=== PATIENT | female | born 1985 ===

== ENCOUNTER → 2020-12-22 10:15 | Outpatient (CLI) | payer OTHER, SELFPAY ==
[2020-12-22 11:14] LABS: COVID19 -Nasal RAPID Negative (Negative)
== END ==
PROVIDERS: PCP Internal Medicine; Visit Provider Physician Assistant
DX: Z01.812 Encounter for preprocedural laboratory examination (principal); Z20.822 Contact with and (suspected) exposure to COVID-19
CPT/HCPCS: 87635

== ENCOUNTER 2020-12-24 08:39 | Day surgery (SDC) | payer OTHER, SELFPAY ==
[2020-12-24] VITALS (8 sets, daily range): BP systolic 103–122; BP diastolic 65–95; PULSE 60–80; RESP 13–18; TEMP 36.6–36.8; O2SAT 96–100; BMI 35.5
--- NOTE | 2020-12-24 | PATH_ITS ---
[facility] Accession Number: [id number] . 01 Material submitted: . duodenum - DUODENUM . 01 Clinical history: . A: R/O CELIAC . 02 Diagnosis: Duodenum, Biopsy: Duodenal mucosa with minimal active inflammation, non-specific. Negative for granulomas, features of sprue, dysplasia, or malignancy. MRV 12/26/2020 1029 Local . 02 Electronically signed: . Kylee Hicks MD, Pathologist NPI- [id number] . 01 Gross description: . DUODENUM: Received in formalin are 2 fragment(s) of mae, soft tissue measuring 0.1 x 0.1 x 0.1 cm to 0.3 x 0.3 x 0.2 cm submitted entirely in 1 cassette(s) /RAMÍREZ 12/25/2020 1934 Local . 02 Pathologist provided ICD-10: D50.9, K21.9, R10.32 . 02 CPT . 331014 Performed at: 01 [facility] [address], [place], [place] [id number] MD Bo Patterson MD Phone: [phone] Performed at: 02 [facility] [address] [place], [place] [id number] MD Maria Elena Ge MD Phone: [phone]
--- NOTE | 2020-12-24 09:07 | PM.HP.1 ---
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 Family & Social History Tobacco & Substance use: Smoking Status Former smoker Meds Home Medications and Allergies Home Medications Medication Instructions Recorded Confirmed Type ascorbate calcium (vitamin C) 500 500 mg PO DAILY 08/22/19 12/24/20 History mg tablet metformin 500 mg tablet 500 mg PO DAILY 08/22/19 12/24/20 History omeprazole 20 mg capsule,delayed 20 mg PO DAILY 08/22/19 12/24/20 History release cholecalciferol (vitamin D3) 25 mcg PO DAILY 12/03/20 12/24/20 History [Vitamin D3] Allergies Allergy/AdvReac Type Severity Reaction Status Date / Time ciprofloxacin [From Cipro] Allergy Severe temporary Verified 12/24/20 08:58 paralysis fluoxetine [From Prozac] Allergy Intermediate major Verified 12/24/20 08:58 swelling hydroxyzine Allergy Intermediate major Verified 12/24/20 08:58 swelling loratadine AdvReac Rash Verified 12/24/20 09:00 Exam Narrative Exam Narrative: Oropharynx free of lesions Chest clear to auscultation percussion Cardiac exam reveals no S3 or murmur Assessment & Plan Assessment & Plan narrative: Iron deficiency anemia. Need for both upper endoscopy and colonoscopy to rule out possible lesions causing blood loss. Risks, benefits, alternatives have been explained.
--- NOTE | 2020-12-24 09:09 | PM.OP.ENDO ---
Operative Date/Time/Diagnoses Date of procedure: 12/24/20 Pre-op diagnosis: See indication and findings Procedure & Clinicians Study performed: EGD and colonoscopy Same procedure as scheduled: Yes Indications: Iron deficiency anemia Surgeon: Fritz Silvestre Procedure Notes Procedure in detail: After informed consent was obtained patient was placed in left lateral decubitus position. The video upper scope was placed into the oropharynx and with the patient's help swelled the esophagus. The esophagus stomach and duodenum were carefully examined. On withdrawal, which fixed to GE junction with was visualized. The scope was removed. The patient tolerated procedure well The patient was then turned colonoscope substituted. This passed the rectum to the cecum. On slow withdrawal mucosa was carefully examined. Preparation was good. The scope was removed. The patient tolerated procedure well. Blood loss none Complications none Sedation Total sedation time Findings EGD 1. Normal esophagus 2. Normal stomach 3. Normal duodenal bulb and sweep. Biopsies taken to rule out celiac Colonoscopy 1. Normal colonoscopy to cecum 2. [id number] internal hemorrhoids No clear source of blood loss anemia was found today. Let us 1st await biopsies from her duodenum and then, if necessary, consider pill camera
[2020-12-24] MEDS: SODIUM CHLORIDE 0.9% 1,000 ML 100 ML IV (09:17)
[2020-12-24] MEDS: fentaNYL 250 MCG/5 ML INJ IV (09:50)
[2020-12-24] MEDS: MIDAZOLAM 5 MG/5 ML VIAL IV (09:50)
--- NOTE | 2020-12-24 10:27 | SUR.PHASEI ---
Patient sitting up drinking juice without difficulty. No trouble swallowing, denies pain and/or nausea.
== END 2020-12-24 10:50 | disposition home or self-care (01) ==
PROVIDERS: PCP Internal Medicine; Referring Provider Internal Medicine; Visit Provider Internal Medicine Gastroenterology
PROC: 0DJD8ZZ Inspection of Lower Intestinal Tract, Via Natural or Artificial Opening Endoscopic (ICD-10-PCS; CPT 45378; principal; 2020-12-24 09:30)
PROC: 0DJ08ZZ Inspection of Upper Intestinal Tract, Via Natural or Artificial Opening Endoscopic (ICD-10-PCS; CPT 43235; 2020-12-24 09:30)
DX: D50.9 Iron deficiency anemia, unspecified (principal); R10.32 Left lower quadrant pain; K21.9 Gastro-esophageal reflux disease without esophagitis; E11.9 Type 2 diabetes mellitus without complications; Z79.84 Long term (current) use of oral hypoglycemic drugs; E66.9 Obesity, unspecified; E78.5 Hyperlipidemia, unspecified; E03.9 Hypothyroidism, unspecified; K76.0 Fatty (change of) liver, not elsewhere classified; F32.9 Major depressive disorder, single episode, unspecified; K64.8 Other hemorrhoids
CPT/HCPCS: 43239; 45378; J2250; J3010